=== PATIENT | female | born 1980 | race Caucasian/White ===

== ENCOUNTER 2017-03-28 09:46 | Emergency (ER) | payer BC, OTHER ==
[2017-03-28 09:49] VITALS: BP 144/87; PULSE 95; RESP 16; TEMP 98.4; O2SAT 100; BMI 29.0
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
--- NOTE | 2017-03-28 11:55 | RAD ---
PROCEDURE: Cervical Spine Radiographs. HISTORY: Pain. COMPARISON: None. FINDINGS: BONES: Straightening of the normal lordosis. Alignment maintained. No fracture. Dens Intact. DISC SPACES: Normal. SOFT TISSUES: Normal. No prevertebral soft tissue swelling. OTHER FINDINGS: None. IMPRESSION: Straightening of the normal cervical lordosis which may be related to positioning/ spasm. No acute fracture.
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
== END 2017-03-28 13:30 | disposition home or self-care (01) ==
LOC: H.ER 09:46
DX: T14.90XA Injury, unspecified, initial encounter (principal); V47.5XXA Car driver injured in collision with fixed or stationary object in traffic accident, initial encounter